=== PATIENT | male | born 1995 | race American Indian/Alaskan Native ===

== ENCOUNTER 2017-07-17 18:24 | Emergency (ER) | payer OTHER ==
--- NOTE | 2017-07-17 20:24 | Cat Scan Report ---
FINAL REPORT PROCEDURE: CT CERVICAL SPINE WO CON TECHNIQUE: Computerized tomography of the cervical spine was performed from the skull base to T1 without contrast material. HISTORY: syncope COMPARISON: No prior studies are available for comparison. FINDINGS: Straightening of the cervical lordosis. Alignment is otherwise satisfactory. No fracture. Odontoid process is intact. C1-2: No significant abnormality. C2-3: Disc space is well preserved. No disc herniation. No canal stenosis or foraminal encroachment.. C3-4: Disc space is well preserved. No disc herniation. No canal stenosis or foraminal encroachment.. C4-5: Disc space is well preserved. No disc herniation. No canal stenosis or foraminal encroachment.. C5-6: Disc space is well preserved. No disc herniation. No canal stenosis or foraminal encroachment.. C6-7: Disc space is well preserved. No disc herniation. No canal stenosis or foraminal encroachment. C7-T1: No significant abnormality. Other: No additional findings. IMPRESSION: No fracture. Disc spaces are well preserved. Straightening of the cervical lordosis..
--- NOTE | 2017-07-17 20:28 | Cat Scan Report ---
FINAL REPORT PROCEDURE: CT HEAD/BRAIN WO CON TECHNIQUE: Computerized tomography of the head was performed without contrast material. HISTORY: syncope COMPARISON: No prior studies are available for comparison. FINDINGS: No CT evidence of intracranial mass, hemorrhage, acute territorial infarction, or hydrocephalus. The intracranial arteries are symmetric in density. Calvarium is intact. Visualized paranasal sinuses and mastoids are aerated. IMPRESSION: No CT evidence of acute intracranial abnormality
[2017-07-18 07:38] VITALS: BP 134/77
[2017-07-18 08:14] LABS: Basophils % (Auto) 0.5 % (0.0-1.8); Hemoglobin 16.3 gm/dl (11.8-15.2); Mean Corpuscular HGB Conc 34 % (32-34); Mean Corpuscular Hemoglobin 30 pg (28-32); Mean Corpuscular Volume 89 fl (84-94); Platelet Count 220 K/mm3 (140-440); Red Blood Count 5.39 M/mm3 (3.65-5.03); Red Cell Distribution Width 13.4 % (13.2-15.2); White Blood Count 8.2 K/mm3 (4.5-11.0)
--- NOTE | 2017-07-18 08:34 | Emergency Department Report ---
ED General Adult HPI - General Chief complaint: Syncope Stated complaint: PASS OUT,HIT HEAD ON FLOOR Time Seen by Provider: 07/18/17 08:05 Source: patient, family Mode of arrival: Ambulatory Limitations: No Limitations - History of Present Illness Initial comments: Patient was at line at work when he had an apparent syncopal episode. He fell and his head hit the concrete floor. He does not complain of neck pain at this time. He doesn't complain of any residual symptoms. He is not dizzy nor complaining of headache. He thinks he may have had bumped the back of his head but doesn't know if there is still a bump there. He essentially feels back to baseline. He states that he has had 1 prior syncopal episode not resulting in admission. He states on that occasion his "knees locked up and he fell off a ladder". -: Sudden Location: head Radiation: non-radiation Severity scale (0 -10): 1 Quality: other (some soreness) Consistency: now resolved Improves with: none Worsens with: none Associated Symptoms: denies other symptoms Treatments Prior to Arrival: none - Related Data Allergies Allergy/AdvReac Type Severity Reaction Status Date / Time No Known Allergies Allergy Verified 07/17/17 18:39 ED Review of Systems ROS: Stated complaint: PASS OUT,HIT HEAD ON FLOOR Other details as noted in HPI Constitutional: denies: chills, fever Eyes: denies: eye pain, eye discharge, vision change ENT: denies: ear pain, throat pain Respiratory: denies: cough, shortness of breath, wheezing Cardiovascular: syncope. denies: chest pain, palpitations Endocrine: no symptoms reported Gastrointestinal: denies: abdominal pain, nausea, diarrhea Genitourinary: denies: urgency, dysuria Musculoskeletal: denies: back pain, joint swelling, arthralgia Skin: denies: rash, lesions Neurological: denies: headache, weakness, paresthesias Psychiatric: denies: anxiety, depression Hematological/Lymphatic: denies: easy bleeding, easy bruising ED Past Medical Hx - Past Medical History Previous Medical History?: No - Surgical History Past Surgical History?: No Additional Surgical History: tubes in ears, tonsillectomy - Social History Smoking Status: Never Smoker Substance Use Type: None ED Physical Exam - General Limitations: No Limitations General appearance: alert, in no apparent distress - Head Head exam: Present: atraumatic, normocephalic - Eye Eye exam: Present: normal appearance, PERRL, EOMI. Absent: scleral icterus - ENT ENT exam: Present: mucous membranes moist. Absent: normal exam - Neck Neck exam: Present: normal inspection. Absent: tenderness, meningismus - Respiratory Respiratory exam: Present: normal lung sounds bilaterally. Absent: respiratory distress - Cardiovascular Cardiovascular Exam: Present: regular rate, normal rhythm. Absent: systolic murmur, diastolic murmur, rubs, gallop - GI/Abdominal GI/Abdominal exam: Present: soft, normal bowel sounds. Absent: distended, tenderness, guarding, rebound, rigid - Rectal Rectal exam: Present: deferred - Extremities Exam Extremities exam: Present: normal inspection - Back Exam Back exam: Present: normal inspection - Neurological Exam Neurological exam: Present: alert, oriented X3, CN II-XII intact. Absent: motor sensory deficit - Psychiatric Psychiatric exam: Present: normal affect, normal mood - Skin Skin exam: Present: warm, dry, intact, normal color. Absent: rash ED Course Vital Signs 07/17/17 07/18/17 07/18/17 18:39 03:25 07:37 Temperature 99.2 F 98.3 F 98 F Pulse Rate 67 61 60 Respiratory 18 18 Rate Blood Pressure 147/89 132/93 134/77 O2 Sat by Pulse 97 100 99 Oximetry 07/18/17 08:00 Temperature Pulse Rate Respiratory 16 Rate Blood Pressure O2 Sat by Pulse Oximetry - Reevaluation(s) Reevaluation #1: Remains asymptomatic. 07/18/17 08:34 ED Medical Decision Making - Lab Data Result diagrams: 07/18/17 07:56 07/18/17 07:56 Laboratory Results - last 24 hr 07/18/17 07/18/17 07:56 07:56 WBC 8.2 RBC 5.39 H Hgb 16.3 H Hct 48.0 H MCV 89 MCH 30 MCHC 34 RDW 13.4 Plt Count 220 Lymph % (Auto) 22.5 [place] % (Auto) 7.1 Eos % (Auto) 1.0 Baso % (Auto) 0.5 Lymph # 1.8 [place] # 0.6 Eos # 0.1 Baso # 0.0 Seg Neutrophils % 68.9 Seg Neutrophils # 5.7 Troponin T < 0.010 Laboratory Results - last 24 hr 07/18/17 07/18/17 07:56 07:56 WBC 8.2 RBC 5.39 H Hgb 16.3 H Hct 48.0 H MCV 89 MCH 30 MCHC 34 RDW 13.4 Plt Count 220 Lymph % (Auto) 22.5 [place] % (Auto) 7.1 Eos % (Auto) 1.0 Baso % (Auto) 0.5 Lymph # 1.8 [place] # 0.6 Eos # 0.1 Baso # 0.0 Seg Neutrophils % 68.9 Seg Neutrophils # 5.7 Troponin T < 0.010 Laboratory Results - last 24 hr 07/18/17 07/18/17 07:56 07:56 WBC 8.2 RBC 5.39 H Hgb 16.3 H Hct 48.0 H MCV 89 MCH 30 MCHC 34 RDW 13.4 Plt Count 220 Lymph % (Auto) 22.5 [place] % (Auto) 7.1 Eos % (Auto) 1.0 Baso % (Auto) 0.5 Lymph # 1.8 [place] # 0.6 Eos # 0.1 Baso # 0.0 Seg Neutrophils % 68.9 Seg Neutrophils # 5.7 Troponin T < 0.010 Laboratory Results - last 24 hr 07/18/17 07/18/17 07:56 07:56 WBC 8.2 RBC 5.39 H Hgb 16.3 H Hct 48.0 H MCV 89 MCH 30 MCHC 34 RDW 13.4 Plt Count 220 Lymph % (Auto) 22.5 [place] % (Auto) 7.1 Eos % (Auto) 1.0 Baso % (Auto) 0.5 Lymph # 1.8 [place] # 0.6 Eos # 0.1 Baso # 0.0 Seg Neutrophils % 68.9 Seg Neutrophils # 5.7 Troponin T < 0.010 Laboratory Results - last 24 hr 07/18/17 07/18/17 07:56 07:56 WBC 8.2 RBC 5.39 H Hgb 16.3 H Hct 48.0 H MCV 89 MCH 30 MCHC 34 RDW 13.4 Plt Count 220 Lymph % (Auto) 22.5 [place] % (Auto) 7.1 Eos % (Auto) 1.0 Baso % (Auto) 0.5 Lymph # 1.8 [place] # 0.6 Eos # 0.1 Baso # 0.0 Seg Neutrophils % 68.9 Seg Neutrophils # 5.7 Troponin T < 0.010 Laboratory Results - last 24 hr 07/18/17 07/18/17 07:56 07:56 WBC 8.2 RBC 5.39 H Hgb 16.3 H Hct 48.0 H MCV 89 MCH 30 MCHC 34 RDW 13.4 Plt Count 220 Lymph % (Auto) 22.5 [place] % (Auto) 7.1 Eos % (Auto) 1.0 Baso % (Auto) 0.5 Lymph # 1.8 [place] # 0.6 Eos # 0.1 Baso # 0.0 Seg Neutrophils % 68.9 Seg Neutrophils # 5.7 Troponin T < 0.010 Laboratory Results - last 24 hr 07/18/17 07/18/17 07:56 07:56 WBC 8.2 RBC 5.39 H Hgb 16.3 H Hct 48.0 H MCV 89 MCH 30 MCHC 34 RDW 13.4 Plt Count 220 Lymph % (Auto) 22.5 [place] % (Auto) 7.1 Eos % (Auto) 1.0 Baso % (Auto) 0.5 Lymph # 1.8 [place] # 0.6 Eos # 0.1 Baso # 0.0 Seg Neutrophils % 68.9 Seg Neutrophils # 5.7 Sodium 143 Potassium 4.4 Chloride 100.5 Carbon Dioxide 24 Anion Gap 23 BUN 8 L Creatinine 0.7 L Estimated GFR > 60 BUN/Creatinine Ratio 11 Glucose 97 Calcium 9.2 Total Bilirubin 0.70 AST 14 ALT 10 Alkaline Phosphatase 67 Troponin T < 0.010 Total Protein 7.6 Albumin 4.6 Albumin/Globulin Ratio 1.5 - EKG Data -: EKG Interpreted by Al EKG shows normal: sinus rhythm, axis, intervals, QRS complexes, ST-T waves Rate: bradycardia (Borderline) - EKG Data Interpretation: normal EKG Critical care attestation.: If time is entered above; I have spent that time in minutes in the direct care of this critically ill patient, excluding procedure time. ED Disposition Clinical Impression: Syncope Qualifiers: Syncope type: vasovagal syncope Qualified Code(s): R55 - Syncope and collapse Minor head injury Qualifiers: Encounter type: initial encounter Qualified Code(s): S00.90XA - Unspecified superficial injury of unspecified part of head, initial encounter Disposition: TO HOME OR SELFCARE Is pt being admited?: No Does the pt Need Aspirin: No Condition: Stable Instructions: Syncope (ED), Minor Head Injury (ED) Additional Instructions: Return if any further problem. Follow-up with a primary care provider. see referrals. Referrals: PRIMARY CARE, [Primary Care Provider] - 3-5 Days JAYSON SUTTON MD [Staff Physician] - 3-5 Days [facility] [Provider Group] - 3-5 Days Time of Disposition: 09:25
[2017-07-18 09:14] LABS: Alanine Aminotransferase 10 units/L (7-56); Albumin 4.6 g/dL (3.9-5); Albumin/Globulin Ratio 1.5 %; Alkaline Phosphatase 67 units/L (35-129); Anion Gap 23 mmol/L; BUN/Creatinine Ratio 11; Blood Urea Nitrogen 8 mg/dL (9-20); Calcium 9.2 mg/dL (8.4-10.2); Carbon Dioxide 24 mmol/L (22-30); Chloride 100.5 mmol/L (98-107); Glucose 97 mg/dL (75-100); Potassium 4.4 mmol/L (3.6-5.0); Sodium 143 mmol/L (137-145); Total Protein 7.6 g/dL (6.3-8.2)
== END 2017-07-18 09:45 | disposition home or self-care (01) ==
LOC: ED 18:24
DX: R55 Syncope and collapse (principal); S09.90XA Unspecified injury of head, initial encounter; X58.XXXA Exposure to other specified factors, initial encounter; Y93.9 Activity, unspecified; Y92.9 Unspecified place or not applicable; Y99.9 Unspecified external cause status
CPT/HCPCS: 36415; 70450; 72125; 80053; 84484; 85025; 93005; 93010